=== PATIENT | male | born 1980 | race Caucasian/White ===

== ENCOUNTER 2019-03-21 06:02 | Emergency (ER) | payer SELFPAY ==
[~2019-03-21] VITALS: Ht 175.3 cm; Wt 81.8 kg
[2019-03-21 06:04] VITALS: Ht 175.3 cm; Wt 81.8 kg
[2019-03-21] MEDS ORDERED: LORAZEPAM 1 MG TAB PO ONE ×3 (06:30→21:30)
[2019-03-21] MEDS ORDERED: OLANZAPINE (ODT) 5 MG TAB ODT ONE (07:00)
[2019-03-21] MEDS ORDERED: HALOPERIDOL 5 MG INJ IM ONE (07:30)
[2019-03-21] MEDS: NITROFURANTOIN (SR) 100 MG CAP PO SCH ×2 (14:08→21:08)
[2019-03-22] MEDS: MIRTAZAPINE 15 MG TAB PO ONE ×2 (00:04)
[2019-03-22] MEDS: NITROFURANTOIN (SR) 100 MG CAP PO SCH (08:36)
[2019-03-22] MEDS ORDERED: LORAZEPAM 1 MG TAB PO ONE ×2 (12:00→12:30)
[2019-03-22 12:46] VITALS: BP 133/73; PULSE 81; RESP 18
== END 2019-03-22 13:17 ==
LOC: E/R 06:02
DX: F10.920 Alcohol use, unspecified with intoxication, uncomplicated (principal); N30.90 Cystitis, unspecified without hematuria; R45.851 Suicidal ideations; R40.2142 Coma scale, eyes open, spontaneous, at arrival to emergency department; R40.2252 Coma scale, best verbal response, oriented, at arrival to emergency department; R40.2362 Coma scale, best motor response, obeys commands, at arrival to emergency department
CPT/HCPCS: 80053; 80307; 81001; 85025; 96372; 99285; J1630